=== PATIENT | female | born 1980 | race Caucasian/White ===

== ENCOUNTER → 2019-12-04 11:28 | Outpatient (CLI) | payer BC, SELFPAY ==
--- NOTE | ~2019-12-04 | MM_ITS ---
EXAMINATION: MM screening jairon BI w chela HISTORY: Screening mammogram TECHNIQUE: Craniocaudal and mediolateral oblique 3-D tomosynthesis images were obtained and synthetic 2-D images were generated. CAD analysis was submitted and interpreted. COMPARISON: No prior mammogram is available for comparison at this institution. BREAST PARENCHYMAL COMPOSITION: The breasts are heterogeneously dense, which may obscure small masses . FINDINGS: There are grouped pleomorphic microcalcifications in in the lateral mid left breast; diagno stic left mammogram is recommended, with magnification views. There are some punctate benign-appearing microcalcifications on the right. Otherwise there is no evid ence of suspicious mass, calcification, or architectural distortion to suggest malignancy in either b reast. There has been no suspicious interval change. IMPRESSION: 1. Pleomorphic suspicious grouped microcalcifications in the outer mid left breast 2. Diagnostic left mammogram with magnification views is recommended BI-RADS Category 0: Incomplete: Needs additional imaging evaluation. Reviewed, dictated and finalized at location A. IMPRESSION: 1. Pleomorphic suspicious grouped microcalcifications in the outer mid left arnold ast 2. Diagnostic left mammogram with magnification views is recommended BI-RADS Category 0: Incomplete: Needs additional imaging evaluation.
== END ==
PROVIDERS: Visit Provider Nurse Practitioner
DX: Z12.31 Encounter for screening mammogram for malignant neoplasm of breast (principal); R92.8 Other abnormal and inconclusive findings on diagnostic imaging of breast
CPT/HCPCS: 77063; 77067

== ENCOUNTER → 2019-12-21 08:48 | Outpatient (CLI) | payer BC, SELFPAY ==
--- NOTE | ~2019-12-21 | MM_ITS ---
EXAMINATION: MM diagnostic mammo unilat LT HISTORY: Indeterminate left breast calcifications on screening mammogram TECHNIQUE: Additional images of the right breast were performed. CAD analysis was submitted and inter preted. COMPARISON: 12/04/2019 FINDINGS: There are segmental fine pleomorphic calcifications in the middle and posterior third of th e outer breast at the 3:00 location. No definite associated mass is identified. IMPRESSION: 1. Suspicious left breast calcifications. 2. Stereotactic biopsy is recommended. BI-RADS category 4, suspicious findings. Reviewed, dictated and finalized at location A. L DATABASE ADMINISTRATOR
== END ==
PROVIDERS: Visit Provider Obstetrics & Gynecology Gynecology
DX: R92.8 Other abnormal and inconclusive findings on diagnostic imaging of breast (principal)
CPT/HCPCS: 77065

== ENCOUNTER 2021-01-08 10:42 | Emergency (ER) | payer BC, SELFPAY ==
--- NOTE | ~2021-01-08 | XR_ITS ---
EXAMINATION: XR ankle RT min 3V INDICATION: Right ankle pain, initial encounter TECHNIQUE: Four views of the right ankle are obtained. COMPARISON: None available FINDINGS: There is an acute, traumatic, closed, oblique fracture of the distal fibula which extends t o the level of the tibial plafond. There is one cortical width of lateral and posterior displacement of the distal fracture fragment. Alignment is otherwise normal. Soft tissue is seen at the fracture s ite. No additional acute osseous abnormality is identified. IMPRESSION: 1. Acute oblique fracture of the distal fibula extending to the level of the tibial plafond. Reviewed, dictated and finalized at location A. TER PACK OPERATOR IMPRESSION: 1. Acute oblique fracture of the distal fibula extending to the level of the ti bial plafond.
[2021-01-08 10:47] VITALS: BP 128/90; PULSE 71; RESP 14; TEMP 36.9; O2SAT 100
--- NOTE | 2021-01-08 11:24 | ED.LOWEXIN ---
HPI - Extremity Injury (Lower) General Chief Complaint: Extremity Injury, Lower Stated Complaint: right ankle injury Time Seen by Provider: 01/08/21 11:01 Source: patient Mode of arrival: wheelchair Limitations: no limitations History of Present Illness HPI Narrative: This is a 40-year-old female that presents to the emergency department for right ankle injury sustained yesterday. Reports she fell down a couple stairs trying to carry something. Reports twisting the right ankle. Denies hitting her head or loss of consciousness. Reports since she has had swelling and pain in the ankle. Reports decreased range of motion due to pain. Denies numbness. Related Data Allergies Allergy/AdvReac Type Severity Reaction Status Date / Time acetaminophen Allergy Intermediate MIGRAINES Unverified 01/08/21 11:54 hydrocodone Allergy Intermediate MIGRAINES Unverified 01/08/21 11:54 Penicillins Allergy Mild UNKNOWN Unverified 01/08/21 11:54 PENNICILLIN Allergy Mild DOESN'T Uncoded 01/08/21 11:54 KNOW/ A CHILD Review of Systems Review of Systems: CONSTITUTIONAL: Denies fever MUSCULOSKELETAL: Reports joint pain, and myalgia. NEUROLOGIC: Denies numbness All systems reviewed & are unremarkable except as noted in HPI and below PMFSH Past Medical History Medical History (Updated 01/08/21 @ 11:58 by Mary Crespo PA-C) History of depression Surgical History Surgical History (Updated 01/08/21 @ 11:26 by Mary Crespo PA-C) History of mastectomy Social History Social History (Updated 01/08/21 @ 11:26 by Mary Crespo PA-C) Substance use: never Exam Narrative: GENERAL: Well-appearing, well-nourished, and in no acute distress. HEAD: Normocephalic, atraumatic. EYES: EOMI. EXTREMITIES: Normal range of motion. Moderate edema and bruising to the right lateral malleoli. Normal DP pulses. Normal sensation SKIN: Warm, dry, no rash. NEURO: No focal deficits. Alert and oriented x3. PSYCH: Normal mood and affect Course Vital Signs Vital signs: Vital Signs Temperature 98.4 F 01/08/21 10:47 Pulse Rate 71 01/08/21 10:47 Respiratory Rate 14 01/08/21 10:47 Blood Pressure 128/90 01/08/21 10:47 Pulse Oximetry 100 01/08/21 10:47 Temperature 98.4 F 01/08/21 10:47 Pulse Rate 71 01/08/21 10:47 Respiratory Rate 14 01/08/21 10:47 Blood Pressure 128/90 01/08/21 10:47 Pulse Oximetry 100 01/08/21 10:47 Procedures Orthopedic Splinting/Casting Injury #1: Splinting/Casting Date: 01/08/21 Splinting/Casting Time: 11:47 Lower Extremity Injury Location: ankle Lower Extremity Immobilizer: posterior splint Splint: customized in ED OCL: posterior Pre-Procedure Neuro Vascular Exam: normal Post-Procedure Neuro Vascular Exam: normal Other Orthopedic Equipment: crutches MDM - Extremity Injury (Lower) MDM Narrative Medical decision making narrative: Patient presents to emergency department for right ankle injury sustained yesterday. She is neurovascularly intact. Right ankle x-ray shows an oblique fracture of the distal end of the fibula. Patient placed in a splint and given crutches. She is stable and felt appropriate for further outpatient evaluation. She was instructed to follow-up with orthopedics. She was given warnings to return to the ER Imaging Data Radiologist's impression: ITS Impressions Ankle X-Ray 01/08/21 11:09 IMPRESSION: 1. Acute oblique fracture of the distal fibula extending to the level of the tibial plafond. Critical Care Time Critical Care Time Critical Care Time: No Discharge Plan Discharge Clinical Impression: Closed fracture of distal end of right fibula Qualifiers: Encounter type: initial encounter Fracture morphology: unspecified fracture morphology Qualified Code(s): S82.831A - Other fracture of upper and lower end of right fibula, initial encounter for closed fracture Patient D
[2021-01-08] MEDS: KETOROLAC 10 MG TABLET PO (11:57)
--- NOTE | 2021-01-08 12:31 | PC.NURSE ---
Pulses and color intact after placement of splint. Reassess by Zak BAHENA.
== END 2021-01-08 12:32 | disposition home or self-care (01) ==
PROVIDERS: Emergency Provider Emergency Medicine
DX: S82.831A Other fracture of upper and lower end of right fibula, initial encounter for closed fracture (principal); Z90.10 Acquired absence of unspecified breast and nipple; W10.9XXA Fall (on) (from) unspecified stairs and steps, initial encounter
CPT/HCPCS: 29515; 73610; 99284; A9270